=== PATIENT | male | born 1985 | race African-American/Black ===

== ENCOUNTER 2017-12-21 20:49 | Emergency (ER) | payer MEDICAID ==
[~2017-12-21] VITALS: Ht 185.4 cm; Wt 103.0 kg
[~2017-12-21 20:49] MED LIST: BENZ1TAB7 PO; BENZTROPINE; BUPR150T9 PO; CARB300C6 PO; CARBAMAZEPINE; CHOL100062 PO; CLON0.1T PO; CLONIDINE; CLOT15CR2 TP; DIVA-75 PO; DIVALPROEX; LORA10TA7 PO; LORATADINE; NICOG BC; RISP3TAB13 PO; RISPERIDONE
[2017-12-21] MEDS ORDERED: LORAZEPAM 1MG TABLET PO ONE (21:45)
[2017-12-21 22:10] LABS: BASOPHILS % 0.8 % (0.0-2.0); EOSINOPHILS % 5.3 % (0.0-5.0); HEMATOCRIT. 37.2 % (42.0-52.0); HEMOGLOBIN. 12.8 g/dL (14.0-18.0); LYMPHOCYTES % 40.9 % (20.0-50.0); MEAN CORPUSCULAR HEMOGLOBIN 29.2 pg (28.0-32.0); MEAN CORPUSCULAR VOLUME 84.8 fL (80.0-94.0); MEAN PLATELET VOLUME 8.6 fl (7.4-10.4); MONOCYTES % 7.8 % (2.0-8.0); NEUTROPHILS % 45.2 % (40.0-76.0); PLATELET 273 x1000/uL (130-400); RED BLOOD CELL COUNT 4.39 mill/uL (4.7-6.1); RED CELL DISTRIBUTION WIDTH 13.4 % (11.6-14.6)
[2017-12-21 22:15] LABS: CHLORIDE 103 mEq/L (98-107)
[2017-12-21 22:20] LABS: ETHANOL BLOOD < 10 mg/dL
[2017-12-22 04:10] LABS: CLARITY URINE CLEAR (CLEAR); COLOR URINE YELLOW (YELLOW); KETONES URINE NEGATIVE (NEGATIVE); LEUKOCYTE ESTERASE URINE NEGATIVE (NEGATIVE); NITRITE URINE NEGATIVE (NEGATIVE); OCCULT BLOOD URINE NEGATIVE (NEGATIVE); PH URINE 5.5 (4.5-8.0); PROTEIN URINE NEGATIVE (NEGATIVE); SPECIFIC GRAVITY URINE 1.015 (1.005-1.030); UROBILINOGEN URINE 0.2 E.U./dL (0.2-1.0)
[2017-12-22 04:22] LABS: *AMPHETAMINES SCREEN URINE NEGATIVE (NEGATIVE)
[2017-12-22 04:23] LABS: *BARBITURATES SCREEN URINE NEGATIVE (NEGATIVE); *BENZODIAZEPINES SCREEN URINE NEGATIVE (NEGATIVE); *COCAINE SCREEN URINE NEGATIVE (NEGATIVE); CANNABINOID URINE SCREEN NEGATIVE (NEGATIVE); METHADONE URINE SCREEN NEGATIVE (NEGATIVE); OPIATES URINE SCREEN NEGATIVE (NEGATIVE); PHENCYCLIDINE URINE SCREEN NEGATIVE (NEGATIVE)
[2017-12-22] MEDS ORDERED: GEMF600T4 MT (11:52)
[2017-12-22 14:07] VITALS: BP 121/76
== END 2017-12-22 14:02 | disposition home or self-care (01) ==
LOC: ER 20:49
DX: F29 Unspecified psychosis not due to a substance or known physiological condition (principal); R00.2 Palpitations; R45.851 Suicidal ideations; F12.10 Cannabis abuse, uncomplicated; I10 Essential (primary) hypertension; Z79.899 Other long term (current) drug therapy
CPT/HCPCS: 36415; 80053; 80305; 80307; 80329; 81003; 84443; 85025; 93005; 99285; G0482

== ENCOUNTER 2021-02-08 20:33 | Inpatient (IN) | payer MEDICAID ==
[~2021-02-08] VITALS: Ht 193 cm; Wt 101.2 kg
[~2021-02-08 20:33] MED LIST changes: -CARB300C6 PO; +CARB300C9 PO; -CLOT15CR2 TP; +CLOT15CR27 TP; +GEMF600T90 MT; -RISP3TAB13 PO; +RISP3TAB62 PO
[2021-02-08] MEDS ORDERED: MAGNESIUM/ALUMINUM HYDROXIDE/SIMETHICONE 30ML UDC PO STA (22:56)
[2021-02-08] MEDS ORDERED: MAGNESIUM CITRATE 300ML SOLUTION PO ONE (23:00)
[2021-02-08 23:26] LABS: BASOPHILS % 0.5 % (0.0-2.0); EOSINOPHILS % 0.9 % (0.0-5.0); HEMATOCRIT. 38.4 % (42.0-52.0); HEMOGLOBIN. 13.6 g/dL (14.0-18.0); LYMPHOCYTES % 23.7 % (20.0-50.0); MEAN CORPUSCULAR HEMOGLOBIN 29.7 pg (28.0-32.0); MEAN PLATELET VOLUME 7.6 fl (7.4-10.4); MONOCYTES % 5.3 % (2.0-8.0); NEUTROPHILS % 69.6 % (40.0-76.0); PLATELET 305 x1000/uL (130-400); RED BLOOD CELL COUNT 4.58 mill/uL (4.7-6.1); RED CELL DISTRIBUTION WIDTH 13.8 % (11.6-14.6)
[2021-02-08 23:28] LABS: CHLORIDE 102 mEq/L (98-107)
[2021-02-09] MEDS ORDERED: KETOROLAC 30MG/ML VIAL IV STA (00:19)
[2021-02-09] MEDS ORDERED: ONDANSETRON HCL 4MG/2ML INJ IV STA (00:19)
[2021-02-09] MEDS ORDERED: SODIUM CHLORIDE 0.9% 1,000 ML IV ONE (00:30)
[2021-02-09 02:28] LABS: CLARITY URINE CLOUDY (CLEAR); COLOR URINE YELLOW (YELLOW); KETONES URINE NEGATIVE (NEGATIVE); LEUKOCYTE ESTERASE URINE 1+ (NEGATIVE); NITRITE URINE POSITIVE (NEGATIVE); OCCULT BLOOD URINE NEGATIVE (NEGATIVE); PROTEIN URINE NEGATIVE (NEGATIVE); SPECIFIC GRAVITY URINE 1.034 (1.005-1.030); UROBILINOGEN URINE 0.2 E.U./dL (0.2-1.0)
[2021-02-09] MEDS ORDERED: HYDROMORPHONE HCL/PF 2MG/ML CPJ IV PRN (05:45)
[2021-02-09] MEDS ORDERED: ACETAMINOPHEN 650MG SUPP PR PRN (05:45)
[2021-02-09] MEDS ORDERED: ONDANSETRON HCL 4MG/2ML INJ IV PRN (05:45)
[2021-02-09] MEDS ORDERED: DEXT 5%/0.45% NACL 1000ML 1,000 ML IV SCH (05:45)
[2021-02-09] MEDS ORDERED: NALOXONE HCL 0.4MG/ML VIAL IV PRN (06:00)
[2021-02-09] MEDS ORDERED: LEVOFLOXACIN 500MG PREMIX 100 ML IV SCH (06:00)
[2021-02-09] MEDS ORDERED: PANTOPRAZOLE SODIUM 40 MG/VIAL IV SCH (06:00)
[2021-02-09 08:30] VITALS: BP 129/68
[2021-02-09 09:42] VITALS: BP 129/68
[2021-02-09] MEDS ORDERED: CARBAMAZEPINE 100MG TABLET CHEW PO SCH (11:00)
[2021-02-09] MEDS ORDERED: BUPROPION HCL 150MG SR TABLET PO SCH (11:00)
[2021-02-09] MEDS ORDERED: BENZTROPINE MESYLATE 1MG TABLET PO SCH (11:00)
[2021-02-09 12:05] VITALS: BP 117/68
[2021-02-10] MEDS ORDERED: LEVOFLOXACIN 500MG PREMIX 100 ML IV SCH (06:00)
== END 2021-02-09 13:00 | disposition home or self-care (01) | DRG 463 ==
LOC: ER 20:33 → MICUSO 02-09 02:36 → 8WST 02-09 07:24
PROVIDERS: ADMIT Hospitalist; ATTEND Hospitalist
DX: N39.0 Urinary tract infection, site not specified (principal); K85.90 Acute pancreatitis without necrosis or infection, unspecified; E11.65 Type 2 diabetes mellitus with hyperglycemia; G40.909 Epilepsy, unspecified, not intractable, without status epilepticus; K59.00 Constipation, unspecified; Z87.891 Personal history of nicotine dependence; Z82.49 Family history of ischemic heart disease and other diseases of the circulatory system; Z79.899 Other long term (current) drug therapy
CPT/HCPCS: 36415; 74018; 74176; 80053; 81003; 83036; 85025; 99291; C9113; J1885; J1956; J2405; J7030

== ENCOUNTER 2022-08-16 14:36 | Emergency (ER) | payer SELFPAY ==
[~2022-08-16] VITALS: Ht 180.3 cm; Wt 90.7 kg
[~2022-08-16 14:36] MED LIST changes: -BENZ1TAB7 PO; +BENZ1TAB78 PO; +BUPR-114 PO; -BUPR150T9 PO; +NA P230E RC
[2022-08-16 14:45] VITALS: BP 136/78
[2022-08-16] MEDS ORDERED: NEOM28.43 TP (15:13)
== END 2022-08-16 15:58 | disposition home or self-care (01) ==
LOC: ER 14:36
DX: S40.819A Abrasion of unspecified upper arm, initial encounter (principal); W18.39XA Other fall on same level, initial encounter; Y93.89 Activity, other specified; Y92.89 Other specified places as the place of occurrence of the external cause; Y99.8 Other external cause status; F31.9 Bipolar disorder, unspecified; F20.9 Schizophrenia, unspecified
CPT/HCPCS: 99282

== ENCOUNTER 2022-12-01 00:32 | Emergency (ER) | payer SELFPAY ==
[~2022-12-01] VITALS: Ht 182.9 cm; Wt 90.0 kg
[~2022-12-01 00:32] MED LIST changes: +NEOM28.43 TP
[2022-12-01] MEDS ORDERED: LORAZEPAM 2MG/ML CPJ IM ONE (01:15)
[2022-12-01] MEDS ORDERED: HALOPERIDOL LACTATE 5MG/ML VIAL IM ONE (01:15)
[2022-12-01 02:50] VITALS: O2SAT 98
[2022-12-01 03:10] LABS: BASOPHILS % 0.3 % (0.0-2.0); EOSINOPHILS % 0.7 % (0.0-5.0); HEMATOCRIT. 34.8 % (42.0-52.0); HEMOGLOBIN. 12.2 g/dL (14.0-18.0); LYMPHOCYTES % 15.8 % (20.0-50.0); MEAN CORPUSCULAR HEMOGLOBIN 29.2 pg (28.0-32.0); MEAN CORPUSCULAR HGB CONC 34.9 g/dL (31.0-37.0); MEAN CORPUSCULAR VOLUME 83.5 fL (80.0-94.0); MEAN PLATELET VOLUME 7.7 fl (7.4-10.4); MONOCYTES % 8.7 % (2.0-8.0); NEUTROPHILS % 74.5 % (40.0-76.0); PLATELET 236 x1000/uL (130-400); RED BLOOD CELL COUNT 4.17 mill/uL (4.7-6.1); RED CELL DISTRIBUTION WIDTH 13.8 % (11.6-14.6); WHITE BLOOD COUNT 7.4 x1000/uL (4.5-11.0)
[2022-12-01 03:21] LABS: *AMPHETAMINES SCREEN URINE NEGATIVE (NEGATIVE); *BARBITURATES SCREEN URINE NEGATIVE (NEGATIVE); *BENZODIAZEPINES SCREEN URINE NEGATIVE (NEGATIVE); *COCAINE SCREEN URINE PRESUMTIVE POSITIVE (NEGATIVE); CANNABINOID URINE SCREEN NEGATIVE (NEGATIVE); ECSTASY MDMA SCREEN URINE NEGATIVE (NEGATIVE); METHADONE URINE SCREEN NEGATIVE (NEGATIVE); OPIATES URINE SCREEN NEGATIVE (NEGATIVE); PHENCYCLIDINE URINE SCREEN NEGATIVE (NEGATIVE)
[2022-12-01 03:24] LABS: CHLORIDE 110 mEq/L (98-107); INDEX HEMOLYSI 1 (1-3); INDEX ICTERIC 1 (1-4); INDEX LIPEMIC 1 (1-3); POTASSIUM 3.2 mEq/L (3.5-5.1); SODIUM 139 mEq/L (136-145)
[2022-12-01 03:31] LABS: ACETAMINOPHEN <2 ug/mL ug/mL (10-30); ALANINE AMINOTRANSFERASE 20 IU/L (13-61); ALBUMIN 3.9 g/dL (3.4-5.0); ASPARTATE AMINOTRANSFERASE 21 IU/L (15-37); BILIRUBIN TOTAL 1.1 mg/dL (0.1-1.0); CALCIUM 8.7 mg/dL (8.5-10.1); CARBON DIOXIDE 27 mEq/L (21-32); CREATININE 0.7 mg/dL (0.6-1.3); ETHANOL BLOOD < 10 mg/dL (-10); GLUCOSE 98 mg/dL (70-105); PROTEIN TOTAL 7.8 g/dL (6.0-8.3); UREA NITROGEN BLOOD 9 mg/dL (7-21)
[2022-12-01] MEDS: OLANZAPINE 5MG TABLET ODT PO SCH ×2 (09:26→20:00)
[2022-12-02] MEDS ORDERED: ACETAMINOPHEN 325MG TABLET PO ONE (09:45)
[2022-12-02] MEDS: OLANZAPINE 5MG TABLET ODT PO SCH ×2 (09:54→19:06)
[2022-12-02] MEDS ORDERED: NICOTINE 21MG PATCH TD ONE (23:15)
[2022-12-03] MEDS: OLANZAPINE 5MG TABLET ODT PO SCH ×2 (09:00→17:00)
[2022-12-04 02:00] VITALS: TEMP 98.3
[2022-12-04] MEDS: OLANZAPINE 5MG TABLET ODT PO SCH (09:56)
[2022-12-04 12:01] VITALS: BP 129/68; PULSE 85; RESP 15
== END 2022-12-04 12:04 | disposition home or self-care (01) ==
LOC: ER 00:32
DX: R45.6 Violent behavior (principal); I49.9 Cardiac arrhythmia, unspecified; Z20.822 Contact with and (suspected) exposure to COVID-19; Z86.59 Personal history of other mental and behavioral disorders
CPT/HCPCS: 80053; 80305; 80307; 80329; 80320; 85025; 36415; 93005; 96372; 99291; 87426; J1630; J2060; C9803; G0480